=== PATIENT | male | born 1995 | race Caucasian/White ===

== ENCOUNTER 2018-04-22 10:40 | Emergency (ER) | payer BC, OTHER ==
--- NOTE | 2018-04-22 11:06 | EDPHY ---
H & P Time Seen by Provider: 04/22/18 10:47 HPI/ROS: Chief complaint. Abdominal pain HPI. 23-year-old male presents with 3 day history of vomiting and diarrhea. He has had hourly diarrhea without blood. Occasional vomiting. He had some generalized abdominal discomfort and now has right lower quadrant pain. No bad food or known exposures. No recent travel. Denies urinary symptoms. Penis and testicles are normal. No chest pain, shortness of breath. No fever. ROS 10 systems were reviewed and negative with the exception of the elements mentioned in the history of present illness Past Medical/Surgical History: Healthy Social History: Single, nonsmoker, no alcohol Smoking Status: Never smoked Physical Exam: General Appearance: Alert pleasant well-developed male mild distress vital signs are stable Eyes: Pupils equal and round no pallor or injection. ENT, mucous membranes are dry Respiratory: There are no retractions, lungs are clear to auscultation. Cardiovascular: Regular rate and rhythm. Gastrointestinal: Abdomen is soft with tenderness in the right lower quadrant. Normal bowel sounds. No masses Neurological: Awake and alert, sensory and motor exams grossly normal. Skin: Warm and dry, no rashes. Musculoskeletal: Neck is supple nontender. Extremities symmetrical, full range of motion. Psychiatric: Patient is oriented X 3, there is no agitation. Constitutional: Initial Vital Signs Temperature (C) 36.8 C 04/22/18 10:43 Heart Rate 75 04/22/18 10:43 Respiratory Rate 17 04/22/18 10:43 Blood Pressure 133/72 H 04/22/18 10:43 O2 Sat (%) 96 04/22/18 10:43 O2 Delivery Mode Room Air Allergies/Adverse Reactions: ? chicken pox vaccine Allergy (Intermediate, Uncoded 04/22/18 10:41) throat swelling eggs Allergy (Intermediate, Uncoded 04/22/18 10:41) throat swelling peanut Allergy (Intermediate, Uncoded 04/22/18 10:41) throat swelling shellfish Allergy (Unknown, Uncoded 04/22/18 10:41) Home Medications: Medication Instructions Recorded Albuterol Sulfate [Albuterol 1 - 2 puffs IH Q4H 10/29/13 Inhaler Hfa] Amoxicillin/Clavulanate Pot 875 mg PO BID #14 tab 04/22/18 [Augmentin 875 MG TAB (*)] Breo Ellipta 100-25 Mcg INH 04/22/18 VYVANSE 04/22/18 Medical Decision Making - Diagnostics Imaging Results: Imaging Impressions Abdomen CT 04/22/18 11:18 Impression: 1. Minimally distended appendix with periappendiceal haziness and fat stranding is suggestive of early appendicitis. 2. Splenomegaly. Findings and recommendations discussed with FRAN Rockwell BENJI at 1237 hour, 2018. Procedures: IV normal saline with initial target of 2 L ED Course/Re-evaluation: Patient and I discussed imaging and lab results. We discussed concern for early appendicitis. I consulted and discussed case with Dr. Moore on-call for surgery who sees the patient in the emergency department. Dr. Moore and the patient discussed medical management versus surgery today. The patient opts for medical management. Patient and I discussed treatment plan including criteria for return and importance of follow-up and further evaluation. He expresses understanding and agreement Differential Diagnosis: Patient has had vomiting and diarrhea likely viral illness. Now he has right lower quadrant pain with normal CBC. The CT abdomen pelvis with IV contrast indicates early appendicitis. Patient and surgeon decided that they would treat this medically. Patient is encouraged to return for worsening pain or fever. I have asked him to be rechecked in 2 days without fail. He expresses understanding and agreement - Data Points Laboratory Results: Laboratory Results 04/22/18 11:00 04/22/18 11:00 04/22/18 04/22/18 11:00 11:00 WBC 5.98 10^3/uL 10^3/uL (3.80-9.50) RBC 5.72 10^6/uL 10^6/uL (4.40-6.38) Hgb 17.2 g/dL g/dL (13.7-17.5) Hct 49.8 % % (40.0-51.0) MCV 87.1 fL fL (81.5-99.8) MCH 30.1 pg pg (27.9-34.1) MCHC 34.5 g/dL g/dL (32.4-36.7) RDW 12.2 % % (11.5-15.2) Plt Count 210 10^3/uL 10^3/uL (150-400) MPV 8.6 fL L fL (8.7-11.7) Neut % (Auto) 66.2 % % (39.3-74.2) Lymph % (Auto) 21.6 % % (15.0-45.0) [place] % (Auto) 11.4 % % (4.5-13.0) Eos % (Auto) 0.3 % L % (0.6-7.6) Baso % (Auto) 0.3 % % (0.3-1.7) Nucleat RBC Rel Count 0.0 % % (0.0-0.2) Absolute Neuts (auto) 3.96 10^3/uL 10^3/uL (1.70-6.50) Absolute Lymphs (auto) 1.29 10^3/uL 10^3/uL (1.00-3.00) Absolute Monos (auto) 0.68 10^3/uL 10^3/uL (0.30-0.80) Absolute Eos (auto) 0.02 10^3/uL L 10^3/uL (0.03-0.40) Absolute Basos (auto) 0.02 10^3/uL 10^3/uL (0.02-0.10) Absolute Nucleated RBC 0.00 10^3/uL 10^3/uL (0-0.01) Immature Gran % 0.2 % % (0.0-1.1) Immature Gran # 0.01 10^3/uL 10^3/uL (0.00-0.10) Sodium 138 mEq/L mEq/L (135-145) Potassium 3.5 mEq/L mEq/L (3.5-5.2) Chloride 104 mEq/L mEq/L (97-110) Carbon Dioxide 24 mEq/l mEq/l (22-31) Anion Gap 10 mEq/L mEq/L (6-14) BUN 9 mg/dL mg/dL (7-23) Creatinine 0.8 mg/dL mg/dL (0.7-1.3) Estimated GFR > 60 Glucose 82 mg/dL mg/dL (70-100) Calcium 9.3 mg/dL mg/dL (8.5-10.4) Medications Given: Discontinued Medications Sodium Chloride (Ns) 1,000 mls @ 0 mls/hr IV EDNOW ONE; Wide Open PRN Reason: Protocol Stop: 04/22/18 11:19 Last Admin: 04/22/18 11:23 Dose: 1,000 mls Sodium Chloride (Ns) 1,000 mls @ 0 mls/hr IV EDNOW ONE; Wide Open PRN Reason: Protocol Stop: 04/22/18 11:19 Last Admin: 04/22/18 11:26 Dose: 1,000 mls Departure - Departure Disposition: Home, Routine, Self-Care Clinical Impression: Abdominal pain Qualifiers: Abdominal location: right lower quadrant Qualified Code(s): R10.31 - Right lower quadrant pain Condition: Good Instructions: Acute Abdominal Pain (ED) Additional Instructions: Your CT today indicates possible early appendicitis. The we will prescribe antibiotics for you to take. Return for worsening pain, fever, vomiting. Frequent, small sips liquids while nauseated. Gradual diet advancement. Recheck in the emergency department in 2 days without fail Referrals: NONE *PRIMARY CARE P,. [Primary Care Provider] - As per Instructions Arnold Moore MD [Medical Doctor] - As per Instructions Prescriptions: Amoxicillin/Clavulanate Pot [Augmentin 875 MG TAB (*)] 875 mg PO BID #14 tab
[2018-04-22] MEDS ORDERED: NS 1,000 ML IV ONE ×2 (11:18)
[2018-04-22 11:27] LABS: PLATELET COUNT 210 10^3/uL (150-400)
[2018-04-22] MEDS ORDERED: IOPAMIDOL (ISOVUE 370) 100 ML BTL IV ONE (11:56)
[2018-04-22 14:09] VITALS: BP 135/71
--- NOTE | 2018-04-22 14:18 | GCON ---
REASON FOR CONSULTATION: Right lower quadrant pain. 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 On Thursday night, after having a burger for dinner, he had the onset of a generalized abdominal pain. He had diarrhea that night, which recurred on Thursday. Thursday night he was fine, and Thursday night the diarrhea occurred. He had vomiting starting on Thursday morning, and he had pain at a level of 6 to 8 starting on Thursday morning. He is currently not hungry. He has not been hungry since onset. There is no history of recent upper respiratory tract infection, or diarrhea. There is no travel outside the [place]. He has not had any antibiotics. He has no history of inflammatory bowel disease. He has had no prior surgery. A CT scan was performed in the ER, which showed a slight hyperemia to the appendiceal wall, a slight increase to periappendiceal smudging, but no distinct appendiceal enlargement. I was asked to evaluate him. SOCIAL HISTORY: He does not smoke. He drinks approximately 2 drinks a week. ALLERGIES: He has had an allergic reaction to the flu vaccine in the past manifested by airway closure, and itchy eyes. He currently is getting desensitization shots for allergies to peanuts, shellfish, dogs, cats, and trees. MEDICATIONS: 1. He uses Breo 200 mg daily. 2. Albuterol inhaler. 3. He uses Vyvanse 30 mg every morning. PAST SURGICAL HISTORY: 1. Tonsillectomy. 2. Gum surgery. 3. Circumcision. REVIEW OF SYSTEMS: There is no history of rheumatic fever, tuberculosis, hepatitis, or transfusions. He has had 1 concussion. He wears lenses for visual correction. His asthma has been lifelong, it is triggered by exercise, allergies, and cold. No limits on his activities normally. He has had short courses of steroids around the time of his allergy shots. PHYSICAL EXAMINATION: GENERAL: He is awake and alert. VITALS: Blood pressure 135/79 with a heart rate of 72, room air saturation is 92%, temperature 36.8. HEENT: His skull is normocephalic, and atraumatic. NEUROLOGIC: He is oriented to person, place, and time. GCS is 15. There are no focal lateralizing neurologic findings. NECK: Shows no thyroid enlargement. No carotid bruits. LYMPHATICS: Shows no cervical, supraclavicular, axillary, or inguinal lymphadenopathy. BACK: Unremarkable. LUNGS: Clear to auscultation. CARDIAC: Shows S1, S2 to be normal, with normal split of S2 without murmurs, rubs, or gallops. ABDOMEN: There is no distinct tenderness with cough. Bowel sounds are hypoactive. There is no obturator, or psoas sign. To palpation, left upper quadrant is 1 on a scale of 1 to 10, left midabdomen is 1, left lower quadrant is 2, epigastrium is 1, periumbilical region is 1, suprapubic area is 2, right upper quadrant is 1, right mid abdomen is 1, right lower quadrant is 2. LABS: His white count is 5.9 with 66% neutrophils. Hematocrit is 50, platelet count is 210. ASSESSMENT: A long discussion is carried out about the pathophysiology of appendicitis. I have indicated to him that he certainly is in a [place] zone. This certainly could be a viral enteric process given the extended time frame, and the diarrhea at onset. We have talked about treating him with antibiotics as opposed to surgical intervention. He would like to try the antibiotic route. He promises to return should he have any further mischief. He will stick to a clear liquid diet. /[id number]/MODL MTDD
== END 2018-04-22 14:07 | disposition home or self-care (01) ==
DX: R10.31 Right lower quadrant pain (principal); R19.7 Diarrhea, unspecified; E86.9 Volume depletion, unspecified
CPT/HCPCS: Q9967

== ENCOUNTER 2018-04-24 11:14 | Emergency (ER) | payer BC ==
[2018-04-24 11:27] VITALS: BP 111/63
--- NOTE | 2018-04-24 11:39 | EDPHY ---
H & P Stated Complaint: TOLD TO COME FOR ABD RECHECK--FEELING BETTER Time Seen by Provider: 04/24/18 11:36 HPI/ROS: HPI: This is a 23-year-old male who presents with Chief Complaint: TOLD TO COME FOR ABD RECHECK--FEELING BETTER Location: Abdomen Quality: Recheck Duration: Several days Signs and Symptoms: no fever, no nausea, no vomiting, no hematemesis, no blood in stool, no abdominal bloating, no diarrhea, no back pain, no urinary symptoms , no testicular/groin pain, no indigestion, no chest pain, no shortness of breath Timing: Resolved Severity: Mild Context: Patient was seen in this emergency room on 04/22/[address] Dhaliwal and Dr. Moore with complaints of onset of generalized abdominal pain, diarrhea Thursday and Thursday. Thursday the diarrhea reoccurred. Any started vomiting on Thursday morning. CT abdomen and pelvis scan showed possible early appendicitis. Evaluation by Dr. Moore as patient was in the [place] zone and it was decided to observe patient treated with Augmentin with follow-up in the emergency room today. Had a bowel movement yesterday. Patient reports that he was unclear with kids for the 1st day but has been eating bland foods all day yesterday evening and today without difficulty. He does complain of some nausea after taking Augmentin. Modifying Factors: Comment: ROS: A comprehensive 10 system review of systems is otherwise negative aside from elements mentioned in the history of present illness. MEDICAL/SURGICAL/SOCIAL HISTORY: Medical history: Asthma Surgical history: Denies Social history: Never smoked. Family history noncontributory. CONSTITUTIONAL: Well-developed, well-nourished adult white male, awake and alert, no obvious distress HEENT: Atraumatic and normocephalic, PERRL, EOMI. Nares patent; no rhinorrhea; no nasal mucosal edema. Tympanic membranes clear. Oropharynx clear, no exudate and moist pink mucosa. Airway patent. No lymphadenopathy. No meningismus. Cardiovascular: Normal S1/S2, regular rate, regular rhythm, without murmur rub or gallop. PULMONARY/CHEST: Symmetrical and nontender. Clear to auscultation bilaterally. Good air movement. No accessory muscle usage. ABDOMEN: Soft, nondistended, nontender, no rebound, no guarding, no peritoneal signs, no masses or organomegaly. No CVAT. EXTREMITIES: 2/2 pulses, strength 5/5, no deformities, no clubbing, no cyanosis or edema. NEUROLOGICAL: no focal neuro deficits. GCS 15. SKIN: Warm and dry, no erythema. no rash. Good capillary refill. Source: Patient Exam Limitations: No limitations - Medical/Surgical History Hx Asthma: Yes Hx Chronic Respiratory Disease: No Hx Diabetes: No Hx Cardiac Disease: No Hx Renal Disease: No Hx Cirrhosis: No Hx Alcoholism: No Hx HIV/AIDS: No Hx Splenectomy or Spleen Trauma: No Other PMH: denies - Social History Smoking Status: Never smoked Constitutional: Initial Vital Signs Temperature (C) 36.4 C 04/24/18 11:24 Heart Rate 65 04/24/18 11:24 Respiratory Rate 16 04/24/18 11:24 Blood Pressure 111/63 04/24/18 11:24 O2 Sat (%) 97 04/24/18 11:24 O2 Delivery Mode Room Air Allergies/Adverse Reactions: ? chicken pox vaccine Allergy (Intermediate, Uncoded 04/22/18 10:41) throat swelling eggs Allergy (Intermediate, Uncoded 04/22/18 10:41) throat swelling peanut Allergy (Intermediate, Uncoded 04/22/18 10:41) throat swelling shellfish Allergy (Unknown, Uncoded 04/22/18 10:41) Home Medications: Medication Instructions Recorded Albuterol Sulfate [Albuterol 1 - 2 puffs IH Q4H 10/29/13 Inhaler Hfa] Amoxicillin/Clavulanate Pot 875 mg PO BID #14 tab 04/22/18 [Augmentin 875 MG TAB (*)] Breo Ellipta 100-25 Mcg INH 04/22/18 VYVANSE 04/22/18 Medical Decision Making ED Course/Re-evaluation: Vital signs reviewed and stable upon arrival. No systemic signs. Abdomen is soft and nontender and I doubt appendicitis at this time. I have counseled patient to continue to take Augmentin and take it with food to decrease nausea secondary to medication side effect. This patient was seen under the supervision of my secondary supervising physician. I evaluated care for this patient independently. Discussed this patient with Dr. Arellano who did not see the patient. Differential Diagnosis: Abdominal pain including but not limited to appendicitis, cholecystitis, gastritis and urinary tract infection. Departure - Departure Disposition: Home, Routine, Self-Care Clinical Impression: Viral gastroenteritis, Soft abdomen Condition: Good Instructions: Gastroenteritis (ED) Additional Instructions: Continue to take Augmentin twice daily with food. Consume a minimum of 8-10 glasses of water or electrolyte fluid replacement drinks that include Gatorade, Powerade, Pedialyte. Eat a bland diet for the next 48 hours and then slowly advance as tolerated. Return to the Emergency Room if symptoms do not resolve in the next 48-72 hours , you spike a fever > 102 F, or experience intractable abdominal pain/nausea/ vomiting. Establish care with a primary care provider. A referral to Dr. Mancuso has been given. Referrals: JENI MANCUSO [Non Staff Provider ()] - As per Instructions
== END 2018-04-24 11:47 | disposition home or self-care (01) ==
DX: K52.9 Noninfective gastroenteritis and colitis, unspecified (principal)